=== PATIENT | female | born 1960 | race Caucasian/White ===

== ENCOUNTER → 2017-02-11 | Outpatient (CLI) | payer MEDICARE ==
--- NOTE | 2017-02-11 17:48 | MAM ---
History: Well woman exam. Date of exam: 02/11/2017 Services provided: Bilateral full field digital screening mammography. CAD, the images were reviewed with R2 computer aided detection. FINDINGS: Glandular tissue is scattered glandular contour. Comparison with 2011 exam. No dominant mass, architectural distortion or clustered microcalcification. IMPRESSION: Benign exam Recommendation: Routine annual mammography BIRAD CATEGORY: 2 BENIGN Electronically signed by: Nikia Barnett MD 02/11/2017 5:47 PM CDT
== END ==
LOC: MAMMO 15:27
PROVIDERS: ATTEND Family Medicine
DX: Z12.31 Encounter for screening mammogram for malignant neoplasm of breast (principal)

== ENCOUNTER → 2017-02-25 | Outpatient (CLI) | payer MEDICARE | END | disposition home or self-care (01) | LOC: GMAB 16:26 | PROVIDERS: ATTEND Family Medicine | DX: N30.00 Acute cystitis without hematuria (principal) ==

== ENCOUNTER → 2017-03-14 | Outpatient (CLI) | payer MEDICARE | END | disposition home or self-care (01) | LOC: GMAB 10:22 | PROVIDERS: ATTEND Family Medicine | DX: R53.82 Chronic fatigue, unspecified (principal); M05.9 Rheumatoid arthritis with rheumatoid factor, unspecified ==

== ENCOUNTER → 2017-03-18 | Outpatient (CLI) | payer MEDICARE | LOC: GMAB 17:06 | PROVIDERS: ATTEND Family Medicine | DX: R31.21 Asymptomatic microscopic hematuria (principal) ==

== ENCOUNTER → 2017-05-14 | Outpatient (CLI) | payer MEDICARE ==
--- NOTE | 2017-05-15 07:49 | CT ---
EXAM DESCRIPTION: Abdomen/Pelvis w/wo Contrast CLINICAL HISTORY: HEMATURIA COMPARISON: None Available TECHNIQUE: CT of the abdomen and Pelvis was performed with and without IV contrast. This exam was performed according to our departmental dose-optimization program, which includes automated exposure control, adjustment of the mA and/or kV according to patient size and/or use of iterative reconstruction technique. FINDINGS: Pre-IV contrast images show no lung base abnormality. The gallbladder is surgically absent. There is no left or right-sided urinary tract calculus, hydronephrosis or perinephric inflammation. No bladder calculus. Following IV contrast administration, a tiny low-density lesion is noted in the inferior pole of the right kidney, too small to characterize but likely representing a cyst. No suspicious renal mass. No bladder wall thickening. The uterus and ovaries are not seen, please correlate with surgical history. No colonic wall thickening or pericolonic inflammation. No dilated small bowel loops. No adenopathy, ascites or pneumoperitoneum. There are several round low density liver lesions which are too small to characterize but probably represent cysts. No adrenal nodule. No concerning bone lesion. Otherwise unremarkable exam. IMPRESSION: No urinary tract calculus, bladder wall thickening, suspicious renal mass or other abnormality to explain hematuria. Electronically signed by: Cresencio Diez MD 05/15/2017 7:48 AM CDT Workstation: [facility]
== END | disposition home or self-care (01) ==
LOC: CT 08:11
PROVIDERS: ATTEND Urology
DX: R31.29 Other microscopic hematuria (principal)

== ENCOUNTER → 2017-12-11 | Outpatient (CLI) | payer MEDICARE | LOC: GMAB 17:09 | PROVIDERS: ATTEND Family Medicine | DX: R31.21 Asymptomatic microscopic hematuria (principal) ==

== ENCOUNTER → 2017-12-30 | Outpatient (CLI) | payer MEDICARE | LOC: GMAB 17:14 | PROVIDERS: ATTEND Family Medicine | DX: N39.0 Urinary tract infection, site not specified (principal) ==

== ENCOUNTER → 2018-02-26 | Outpatient (CLI) | payer MEDICARE | LOC: LAB.O 16:33 | PROVIDERS: ATTEND Urology | DX: N39.0 Urinary tract infection, site not specified (principal) ==

== ENCOUNTER → 2018-07-09 | Outpatient (CLI) | payer MEDICARE | LOC: GMATM 17:31 | PROVIDERS: ATTEND Nurse Practitioner Family | DX: R30.0 Dysuria (principal) ==

== ENCOUNTER → 2019-04-26 | Outpatient (CLI) | payer MEDICARE | LOC: GMAE 17:16 | PROVIDERS: ATTEND Family Medicine | DX: Z79.899 Other long term (current) drug therapy (principal) ==

== ENCOUNTER → 2019-11-23 | Outpatient (CLI) | payer MEDICARE ==
--- NOTE | 2019-11-26 15:25 | MAM ---
EXAM DESCRIPTION: 3D Screening BILATERAL : Digital Mammography. CLINICAL HISTORY: 59 years Female SCREENING no complaints. No personal or family history of breast cancer. Menarche age 11. Childbirth age 16. Menopause age 39. HRT 5 or more years ago.. Lifetime risk of developing breast cancer (Tyrer-Cuzick model)(%): 5.2. COMPARISON: 2-D digital screening bilateral mammography February 2017. TECHNIQUE: Bilateral CC and MLO projection full-field images, digital tomosynthesis mammographic technique. Bilateral digital 2-D full-field MLO images. CAD available for 2-D images. FINDINGS: The breast parenchymal density pattern is: Scattered areas of fibroglandular density. No skin thickening or nipple retraction. Vascular calcifications. Solitary parenchymal microcalcifications. No new focal, stellate mass or density, focal asymmetry , and no suspicious microcalcifications bilaterally. Stable mammograms compared to prior study. Taking into account, differences in mammographic technique. IMPRESSION: Benign exam. BIRAD CATEGORY: 2 BENIGN FINDINGS. RECOMMENDATIONS: FOLLOW UP: Routine digital bilateral mammographic screening, one year interval from November 2019. Written communication explaining the IMPRESSION and follow-up, will be mailed to the patient and referring health care provider. According to the [employer], yearly mammograms are recommended starting at age 40 and continuing as long as a woman is in good health. Any breast change noted on a breast self-exam should be reported promptly to the patient's healthcare provider. Breast MRI is recommended for women with an approximately 20-25% or greater lifetime risk of breast cancer, including women with a strong family history of breast or ovarian cancer and women who have been treated for Hodgkin's disease. A negative mammographic report should not delay tissue diagnosis in patients with significant clinical history or physical findings. Extremely dense breast tissue limits the sensitivity of digital mammography. Electronically signed by: Joby Camargo MD 11/26/2019 3:24 PM [employer]
== END ==
LOC: MAMMO 16:00
PROVIDERS: ATTEND Obstetrics & Gynecology
DX: Z12.31 Encounter for screening mammogram for malignant neoplasm of breast (principal)

== ENCOUNTER → 2020-04-11 | Outpatient (CLI) | payer MEDICARE | LOC: GMAE 10:25 | PROVIDERS: ATTEND Family Medicine | DX: M05.9 Rheumatoid arthritis with rheumatoid factor, unspecified (principal) ==

== ENCOUNTER → 2020-05-22 | Outpatient (CLI) | payer MEDICARE | LOC: GMAE 17:08 | PROVIDERS: ATTEND Family Medicine | DX: N39.0 Urinary tract infection, site not specified (principal) ==

== ENCOUNTER → 2020-07-07 | Outpatient (CLI) | payer MEDICARE | LOC: GMAE 10:34 | PROVIDERS: ATTEND Family Medicine | DX: M05.9 Rheumatoid arthritis with rheumatoid factor, unspecified (principal) ==

== ENCOUNTER → 2020-08-15 | Outpatient (CLI) | payer MEDICARE | LOC: GMAE 14:41 | PROVIDERS: ATTEND Family Medicine | DX: M06.9 Rheumatoid arthritis, unspecified (principal) ==

== ENCOUNTER → 2020-11-06 | Outpatient (CLI) | payer MEDICARE | LOC: GMAE 17:10 | PROVIDERS: ATTEND Family Medicine | DX: N30.00 Acute cystitis without hematuria (principal) ==

== ENCOUNTER → 2020-11-14 | Outpatient (CLI) | payer MEDICARE | LOC: GMAE 16:51 | PROVIDERS: ATTEND Family Medicine | DX: M06.9 Rheumatoid arthritis, unspecified (principal); N39.0 Urinary tract infection, site not specified ==

== ENCOUNTER → 2020-12-04 | Outpatient (CLI) | payer MEDICARE | LOC: GMALS 10:33 | PROVIDERS: ATTEND Nurse Practitioner Acute Care | DX: N39.0 Urinary tract infection, site not specified (principal) ==